=== PATIENT | male | born 1965 | race Caucasian/White ===

== ENCOUNTER → 2016-12-01 | Emergency (ER) | payer BC, OTHER ==
[~2016-12-01] VITALS: Wt 109.0 kg
[~2016-12-01] MED LIST: CYCL-319 PO; ENAL20TA77; HYDR-906 PO; HYDROCODONE/APAP (10/325) TAB PO ONE; KETOROLAC 60 MG INJ IM STA; ONDANSETRON (ODT) 4 MG TAB ODT STA
[2016-12-01 18:10] LABS: URINE BLOOD (Dip) POC Negative (NEGATIVE)
--- NOTE | 2016-12-01 18:48 | RADRPT ---
PROCEDURE: XR L-Spine. CLINICAL INDICATION: Low back pain. TECHNIQUE: AP, lateral, and cone down views of the lumbar spine were obtained. COMPARISON: None FINDINGS: The lumbar lordosis is maintained. The vertebral body heights are normal. Multilevel endplate osteo phytosis is seen. Moderate disk height loss at L5-S1 is seen. Mild disk height loss in the remaind er of the lumbar spine is seen. No acute fracture or subluxation is seen. No paravertebral soft tis cem abnormality is seen. IMPRESSION: Multilevel degenerative spondylosis of the lumbar spine as noted above. RPTAT: HPNM Physician Leah Date Time Electronically viewed and signed by Physician Leah on 12/01/2016 18:48 /
--- NOTE | 2016-12-01 18:58 | ERD ---
ER Documentation Chief Complaint Date/Time DATE: 12/01/16 TIME: 18:56 Chief Complaint LOW BACK PAIN FOR 2 DAYS. NON TRAUMATIC. NO NEURO DEFICIT HPI This 51-year-old male presents with lower back pain on the right for last 2 days. It started after possibly awkward movement. He denies any fall, fevers, urinary complaints, bowel or bladder incontinence. He denies previous history of back problems. ROS All systems reviewed and are negative except as per history of present illness. Medications Home Meds Active Scripts Cyclobenzaprine Hcl* (Cyclobenzaprine Hcl*) 10 Mg Tablet, 10 MG PO TID, #15 TAB Prov:JOSSIE MCKINLEY MD 12/01/16 Hydrocodone/Acetaminophen ([place] 5-325 Tablet) 1 Each Tablet, 1 TAB PO Q6H Y for PAIN, #16 TAB Prov:JOSSIE MCKINLEY MD 12/01/16 Reported Medications Enalapril (Enalapril) 20 Mg Tablet 11/14/09 Allergies Allergies: Coded Allergies: No Known Drug Allergy (Verified Allergy, Unknown, 12/01/16) PMhx/Soc History of Surgery: Yes (HERNIA REPAIR) Hx Neurological Disorder: No Hx Respiratory Disorders: No Hx Cardiac Disorders: Yes (HTN) Hx Miscellaneous Medical Probl: Yes (depression) Hx Alcohol Use: No Hx Substance Use: No Hx Tobacco Use: No Smoking Status: Never smoker Physical Exam Vitals Vital Signs Date Time Temp Pulse Resp B/P Pulse Ox O2 Delivery O2 Flow Rate FiO2 12/01/16 16:26 97.5 89 21 150/81 97 Physical Exam Const: [] Alert, [id number]. Head: Atraumatic Eyes: Normal Conjunctiva ENT: Normal External Ears, Nose and Mouth. Neck: Full range of motion..~ No meningismus. Resp: Clear to auscultation bilaterally Cardio: Regular rate and rhythm, no murmurs Abd: Soft, non tender, non distended. Normal bowel sounds Skin: No petechiae or rashes Back: No midline or flank tenderness. There is some tenderness primarily on the right L4-L5 paraspinous muscles. No midline tenderness or deformities. Positive straight leg raise in the right. Patient is amatory without deficits or weakness. Ext: No cyanosis, or edema Neur: Awake and alert Psych: Normal Mood and Affect Results 24 hrs Laboratory Tests Test 12/01/16 18:13 Bedside Urine Blood Negative Bedside Urine Glucose (UA) Negative Bedside Urine Ketones (LAB) Trace Bedside Urine Leukocyte Esterase (L Negative Bedside Urine Nitrite (LAB) Negative Bedside Urine Protein (LAB) Trace Bedside Urine pH (LAB) 6.0 Current Medications Medications (Trade) Dose Ordered Sig/Mati Route PRN Reason Start Time Stop Time Status Last Admin Dose Admin Ketorolac Tromethamine (Toradol) 60 mg ONCE STAT IM 12/01/16 17:53 12/01/16 17:54 DC 12/01/16 18:11 Acetaminophen/ Hydrocodone Bitart ([place] (10)) 1 tab ONCE ONCE PO 12/01/16 18:00 12/01/16 18:01 DC 12/01/16 18:10 Ondansetron HCl (Zofran Odt) 8 mg ONCE STAT ODT 12/01/16 17:53 12/01/16 17:54 DC 12/01/16 18:10 Procedures/MDM Urine is negative for blood, leukocytes nitrites. Negative for glucose. X-ray LS-Spine 3V Interpreted by me: Bones: [No fracture] Joints: [No dislocation] Foreign body: [None]. Impression-degenerative changes lumbar spine. Patient presents with acute low back pain after awkward movement, likely lumbar strain without evidence of cauda equina syndrome, genitourinary etiology, symptoms of epidural abscess, neurologic deficit, fracture, dislocation. We will treated with a short course of [place] and Flexeril and instructions for back exercises. Patient was given [place] and Toradol here in the ED. Departure Diagnosis: Primary Impression: Injury of back Encounter type: initial encounter Qualified Code: S39.92XA - Injury of back , initial encounter Condition: Stable Patient Instructions: Back Exercises, Lumbar, Back Sprain/Strain Additional Instructions: X-ray shows degenerative degenerative changes in urine is normal. Recommend stretching and exercises at home and follow-up with primary doctor for further evaluation treatment. Recheck otherwise for new or worsening symptoms-fever, weakness. Continue ibuprofen 600 mg every 6 hours at home. JOSSIE MCKINLEY MD Dec 01, 2016 18:58
[2016-12-01 19:11] VITALS: BP 129/87; PULSE 77; RESP 18; TEMP 98.7
== END | disposition home or self-care (01) ==
LOC: FTE 16:24
DX: S39.92XA Unspecified injury of lower back, initial encounter (principal); I10 Essential (primary) hypertension; X50.1XXA Overexertion from prolonged static or awkward postures, initial encounter; Y92.9 Unspecified place or not applicable
CPT/HCPCS: 72100; 81003; 96372; 99284; J1885; Z7610

== ENCOUNTER 2017-01-22 14:01 | Emergency (ER) | payer SELFPAY ==
[~2017-01-22] VITALS: Ht 172.7 cm; Wt 106.5 kg
[~2017-01-22 14:01] MED LIST changes: -ENAL20TA77; +ENAL20TA77 PO; -HYDROCODONE/APAP (10/325) TAB PO ONE; -KETOROLAC 60 MG INJ IM STA; -ONDANSETRON (ODT) 4 MG TAB ODT STA
[2017-01-22 14:26] VITALS: Ht 172.7 cm; Wt 106.5 kg
== END 2017-01-22 22:07 | disposition left against medical advice (07) ==
LOC: E/R 14:01
DX: Z53.21 Procedure and treatment not carried out due to patient leaving prior to being seen by health care provider (principal)

== ENCOUNTER 2017-01-26 16:34 | Observation (INO) | payer BC ==
[~2017-01-26] VITALS: Ht 180.3 cm; Wt 104.7 kg
[2017-01-26] MEDS ORDERED: NITROGLYCERIN 2% 1 GM OINT PKT TD STA (19:48)
[2017-01-26] MEDS ORDERED: ONDANSETRON 4 MG INJ IV STA (19:48)
[2017-01-26] MEDS ORDERED: ASPIRIN 325 MG TAB PO STA (19:48)
[2017-01-26] MEDS ORDERED: morphine 2 MG INJ IV STA (19:48)
--- NOTE | 2017-01-26 19:51 | ERA ---
ER Documentation Chief Complaint Date/Time DATE: 01/26/17 TIME: 19:49 Chief Complaint Complains of chest pain x 1 gour ago HPI Very pleasant 51-year-old male history of hypertension and hyperlipidemia who presents with chest pain. He states that it started 1 hour prior to arrival. He describes it as pressure-like and tingling to the left side of his chest that is now constant but improved approximately 2 out of 10. He denies any back pain, no pleuritic pain, no fevers chills or cough. He denies any recent social stressors. He has not had stress testing in the past 2-5 years. Patient is a non-smoker. ROS All systems reviewed and are negative except as per history of present illness. Medications Home Meds Reported Medications Bupropion Hcl* (Wellbutrin XL*) 300 Mg Tab.sr.24h, 300 MG PO DAILY, TAB.SA 01/26/17 Hydrochlorothiazide* (Hydrochlorothiazide*) 25 Mg Tab, 25 MG PO DAILY, #30 TAB 01/26/17 Metoprolol Tartrate* (Lopressor*) 50 Mg Tab, 50 MG PO BID, #60 TAB 01/26/17 Enalapril (Enalapril) 20 Mg Tablet, 20 MG PO DAILY 11/14/09 Discontinued Scripts Cyclobenzaprine Hcl* (Cyclobenzaprine Hcl*) 10 Mg Tablet, 10 MG PO TID, #15 TAB Prov:JOSSIE MCKINLEY MD 12/01/16 Hydrocodone/Acetaminophen ([place] 5-325 Tablet) 1 Each Tablet, 1 TAB PO Q6H Y for PAIN, #16 TAB Prov:JOSSIE MCKINLEY MD 12/01/16 Allergies Allergies: Coded Allergies: No Known Drug Allergy (Verified Allergy, Unknown, 01/26/17) PMhx/Soc History of Surgery: Yes (HERNIA REPAIR) Hx Neurological Disorder: No Hx Respiratory Disorders: No Hx Cardiac Disorders: Yes (HTN, cholesterol ) Hx Miscellaneous Medical Probl: Yes (depression) Hx Alcohol Use: No Hx Substance Use: No Hx Tobacco Use: No Smoking Status: Never smoker FmHx Family History: No coronary disease, No diabetes Physical Exam Vitals Vital Signs Date Time Temp Pulse Resp B/P Pulse Ox O2 Delivery O2 Flow Rate FiO2 01/26/17 21:39 71 18 124/95 95 Room Air 01/26/17 19:47 82 17 186/100 100 Room Air 01/26/17 16:51 97.6 70 20 171/99 97 Physical Exam General: Well developed, well nourished, no acute distress Head: Normocephalic, atraumatic. Eyes: Pupils equally reactive, EOM intact ENT: Moist mucous membranes Neck: Supple, no lymphadenopathy Respiratory: Lungs clear bilaterally, no distress Cardiovascular: RRR, no murmurs, rubs, or gallops Abdominal: Soft, non-tender, non-distended, no peritoneal signs : Deferred MSK: No edema, no unilateral swelling, 5/5 strength, no pulse deficits Neurologic: Alert and oriented, moving all extremities, normal speech, no focal weakness, no cerebellar signs Skin: No rash Psych: Normal mood Result Diagram: 01/26/17 1950 01/26/17 1950 Results 24 hrs Laboratory Tests Test 01/26/17 19:50 White Blood Count 8.610^3/ul Red Blood Count 5.1510^6/ul Hemoglobin 16.1g/dl Hematocrit 48.4% Mean Corpuscular Volume 94.0fl Mean Corpuscular Hemoglobin 31.3pg Mean Corpuscular Hemoglobin Concent 33.3g/dl Red Cell Distribution Width 12.7% Platelet Count 22584^3/UL Mean Platelet Volume 10.3fl Neutrophils % 66.0% Lymphocytes % 21.7% Monocytes % 9.4% Eosinophils % 2.1% Basophils % 0.5% Nucleated Red Blood Cells % 0.0/100WBC Neutrophils # 5.710^3/ul Lymphocytes # 1.910^3/ul Monocytes # 0.810^3/ul Eosinophils # 0.210^3/ul Basophils # 0.010^3/ul Nucleated Red Blood Cells # 0.010^3/ul Prothrombin Time 12.8Sec Prothrombin Time Ratio 1.0 INR International Normalized Ratio 0.96 Activated Partial Thromboplast Time 28.4Sec Sodium Level 141mmol/L Potassium Level 3.8mmol/L Chloride Level 98mmol/L Carbon Dioxide Level 30mmol/L Anion Gap 17 Blood Urea Nitrogen 18mg/dl Creatinine 1.13mg/dl Glucose Level 96mg/dl Calcium Level 9.4mg/dl Troponin I < 0.012ng/ml Current Medications Medications (Trade) Dose Ordered Sig/Mati Route PRN Reason Start Time Stop Time Status Last Admin Dose Admin Aspirin (Aspirin) 325 mg ONCE STAT PO 01/26/17 19:48 01/26/17 19:49 DC 01/26/17 19:56 Nitroglycerin (Nitroglycerin 2% Oint) 1 inch ONCE STAT TD 01/26/17 19:48 01/26/17 19:49 DC 01/26/17 19:56 Morphine Sulfate (morphine) 2 mg ONCE STAT IV 01/26/17 19:48 01/26/17 19:49 DC 01/26/17 19:56 Ondansetron HCl (Zofran Inj) 4 mg ONCE STAT IV 01/26/17 19:48 01/26/17 19:49 DC 01/26/17 19:55 Lorazepam (Ativan) 1 mg ONCE ONCE IV 01/26/17 20:00 01/26/17 20:01 DC 01/26/17 19:56 Ondansetron HCl (Zofran Inj) 4 mg ER BRIDGE PRN IV NAUSEA AND/OR VOMITING 01/26/17 22:00 01/27/17 21:59 Acetaminophen (Tylenol Tab) 650 mg ER BRIDGE PRN PO MILD PAIN/FEVER 01/26/17 22:00 01/27/17 21:59 Procedures/MDM EKG, MONITORS, & DIAGNOSTIC IMAGING: EKG: I reviewed and interpreted a 12-lead EKG. Rhythm: Normal sinus rhythm Ectopy: None Intervals: No abnormalities ST segments: No elevations or depressions T waves: No contiguous inversions Repeat EKG: EKG: I reviewed and interpreted a 12-lead EKG. Rhythm: Normal sinus rhythm Ectopy: None Intervals: No abnormalities ST segments: No elevations or depressions T waves: No contiguous inversions Chest x-ray: I reviewed and interpreted a 1 view of the chest Mediastinum: No enlargement Cardiac silhouette: No cardiomegaly Airspace: Clear lung bragg bilaterally without evidence of pneumothorax Bones: No evidence of fracture LAB INTERPRETATION: Negative troponin MEDICAL DECISION MAKING: The patient's history, physical exam and clinical presentation is concerning for possible cardiogenic etiology and acute coronary syndrome. Based on the patient's clinical exam and history and risk factors, I have a much lower clinical concern for pulmonary embolism, acute aortic dissection, pneumothorax, pneumonia, cardiac tamponade HEART Score: 4 MACE Rate: 16.6% Shared Decision Making: We had a conversation regarding risk stratification, MACE rate, and the risks, benefits, alternatives of disposition planning options. Disposition planning: I strongly recommend inpatient hospitalization for serial enzymes and risk stratification. Patient is agreeable. ER COURSE: Aspirin, nitro, morphine, Ativan provided. The patient is having a stress reaction when told about potential of cardiac etiology. The patient's blood pressure is elevated but he has no sudden onset pain, no mid back pain, no signs of dissection. This is more likely secondary to stress and anxiety. Monitor closely. I kept the patient and/or family informed of laboratory and diagnostic imaging results throughout the emergency room course. DISPOSITION PLAN: Telemetry admission for management of potential ACS CONSULTATION: Accepting care team and consultations: I discussed the current laboratory data, diagnostic imaging and emergency care provided. Admitting team: Dr. Marsh Admitting team indication: Insurance directed Departure Diagnosis: Primary Impression: Chest pain Qualified Code: R07.9 - Chest pain, unspecified type Additional Impression: Hypertensive urgency Condition: Stable THOMAS RODRIGUEZ MD January 26, 2017 19:51
[2017-01-26 19:59] LABS: ADD SCAN DIFF NO
[2017-01-26] MEDS ORDERED: LORAZEPAM 2 MG INJ IV ONE (20:00)
[2017-01-26 20:14] LABS: BASOPHILS % 0.5 % (0.0-2.0); EOSINOPHILS # 0.2 10^3/ul (0.0-0.5); EOSINOPHILS % 2.1 % (0.0-7.0); HEMATOCRIT 48.4 % (42.0-52.0); HEMOGLOBIN 16.1 g/dl (14.0-18.0); LYMPHOCYTES # 1.9 10^3/ul (0.8-2.9); LYMPHOCYTES % 21.7 % (15.0-51.0); MEAN CORPUSCULAR HEMOGLOBIN 31.3 pg (29.0-33.0); MEAN CORPUSCULAR HGB CONC 33.3 g/dl (32.0-37.0); MEAN PLATELET VOLUME 10.3 fl (7.4-10.4); MONOCYTE # 0.8 10^3/ul (0.3-0.9); MONOCYTES % 9.4 % (0.0-11.0); NEUTROPHIL # 5.7 10^3/ul (1.6-7.5); PLATELET COUNT 230 10^3/UL (140-415); RED BLOOD COUNT 5.15 10^6/ul (4.70-6.10); RED CELL DISTRIBUTION WIDTH 12.7 % (11.5-14.5); WHITE BLOOD COUNT 8.6 10^3/ul (4.8-10.8)
[2017-01-26 20:22] LABS: INR 0.96; PROTIME 12.8 Sec (12.2-14.2)
[2017-01-26 20:23] LABS: PARTIAL THROMBOPLASTIN TIME 28.4 Sec (25.0-35.0)
[2017-01-26 20:25] LABS: CHLORIDE 98 mmol/L (97-110); POTASSIUM 3.8 mmol/L (3.5-5.1); SODIUM 141 mmol/L (135-144)
[2017-01-26 20:27] LABS: CREATININE 1.13 mg/dl (0.61-1.24)
[2017-01-26 20:28] LABS: ANION GAP 17 (8-16); BLOOD UREA NITROGEN 18 mg/dl (7-20); CALCIUM 9.4 mg/dl (8.4-10.2); CARBON DIOXIDE 30 mmol/L (21-31); GLUCOSE 96 mg/dl (70-220)
--- NOTE | 2017-01-26 20:38 | RADRPT ---
PROCEDURE: XR Chest. CLINICAL INDICATION: Chest pain. TECHNIQUE: PA and Lateral views of the chest were obtained. COMPARISON: None. FINDINGS: The soft tissues are normal. The film is under penetrated limiting bone detail in the area of the s pine. The right diaphragm is elevated. The heart, cardiomediastinal silhouette and hilar structure s are normal. The pulmonary vasculature is normal. There is a left-sided aorta. The lungs are clear. The costophrenic angles are normal. IMPRESSION: 1. Elevation of the right diaphragm. 2. No evidence of active cardiopulmonary disease. 3. Allowing for differences in inspiratory effort, stable chest compared to August 18, 2007. RPTAT:AAJJ Physician Bennett Date Time Electronically viewed and signed by Drew Lezama Physician on 01/26/2017 20:38 JAKOB/
[2017-01-26 20:40] LABS: TROPONIN-I < 0.012 ng/ml (0.00-0.12)
[2017-01-26] MEDS ORDERED: BUPR300T48 PO (21:12)
[2017-01-26] MEDS ORDERED: HYD25 PO (21:12)
[2017-01-26] MEDS ORDERED: METO-429 PO (21:12)
[2017-01-26] MEDS ORDERED: ACETAMINOPHEN 325 MG TAB PO PRN (22:00)
[2017-01-26] MEDS ORDERED: ONDANSETRON 4 MG INJ IV PRN (22:00)
--- NOTE | 2017-01-27 00:13 | QN ---
Documentation Comment H&P dict a./p 1. chest pain, plan echo and stress, add lipitor and asa HUMBERTO WOMACK MD January 27, 2017 00:13
[2017-01-27] MEDS ORDERED: HYDROCODONE/APAP (5/325) TAB PO PRN (00:30)
[2017-01-27] MEDS ORDERED: ACETAMINOPHEN 325 MG TAB PO PRN (00:30)
[2017-01-27] MEDS ORDERED: ONDANSETRON 4 MG INJ IV PRN (00:30)
[2017-01-27 00:36] LABS: CHOL/HDL RATIO 6.2 RATIO
--- NOTE | 2017-01-27 01:25 | HP ---
DATE OF ADMISSION: 01/26/2017 CHIEF COMPLAINT: Chest pain. HISTORY OF PRESENT ILLNESS: The patient presents to the emergency room at [facility] with chest pain, which began approximately 3:30 this afternoon. He states that he was at a restaurant wh en he began to experience pain in the center of the chest, which radiated up to the left shoulder. He describes this as pressure-like pain, but there is no associated nausea, vomiting, diaphoresis, o r shortness of breath. This pain lasted for approximately an hour or an hour and a half. He came i mmediately to the emergency room, but the pain spontaneously resolved. He denies any known cardiac disease, prior chest pain instances. Denies tobacco, known hyperlipidemia, though he acknowledges h ypertension. PAST MEDICAL HISTORY: Significant for hypertension. MEDICATIONS: As an outpatient include: 1. Enalapril 20 mg daily. 2. Metoprolol 50 mg b.i.d. 3. Bupropion 300 mg daily. 4. Hydrochlorothiazide 25 mg daily. ALLERGIES: NO KNOWN DRUG ALLERGIES. SOCIAL HISTORY: The patient lives at home in [place] with his sister and [id number], is inde pendent of activities of daily living. Does not drive. Denies tobacco, alcohol, or illicit drug us e. FAMILY HISTORY: Noncontributory. REVIEW OF SYSTEMS: Five systems reviewed and found not to be revealing. PHYSICAL EXAMINATION: VITAL SIGNS: Blood pressure is 124/95, pulse rate 71, respirations 18, temperature is 97.6. GENERAL: Pleasant, middle-aged man in no acute distress. Alert and oriented x3. HEENT: Normocephalic, atraumatic without evident scleral icterus, perioral cyanosis. Mucous membra gretchen are moist. NECK: Soft and supple without masses. No evidence of jugular venous distention or carotid bruits. CHEST: Clear to auscultation and percussion bilaterally. HEART: Regular rate and rhythm. S1, S2. No added sounds. ABDOMEN: Soft, nontender, nondistended without palpable hepatosplenomegaly. EXTREMITIES: Without clubbing, cyanosis, or edema. SKIN: Without rashes. NEUROLOGIC: Grossly intact. LABORATORY STUDIES: Reveal a hemoglobin of 16.1 g/dL, white count of 8600, platelets of 230,000. I NR is 1.0. Sodium 141, potassium 3.8, chloride 98, bicarbonate 30, BUN 18, creatinine 1.13, glucose 96. Initial troponin is negative. EKG is sinus rhythm without ischemic ST segment or T-wave vásquez es. Chest x-ray revealed elevation of the right hemidiaphragm, but otherwise is without infiltrates or effusions. ASSESSMENT AND PLAN: Cardiac: The patient with chest pain, unclear etiology. 1. We will plan to evaluate for ischemic cardiac disease, run serial troponins, obtain echocardiogr am, and plan for stress testing. 2. Continue risk factor modification. 3. Add aspirin and Lipitor to current hypertension regimen. Dictated By: HUMBERTO WOMACK MD RER/NTS Conf#: [id number] DID#: [id number]
[2017-01-27 04:00] VITALS: BP 148/95; PULSE 60; PULSE 64; RESP 16
[2017-01-27 04:07] VITALS: Ht 180.3 cm; Wt 104.7 kg
[2017-01-27 06:20] LABS: CK-MB 1.74 ng/ml (0.0-2.4)
[2017-01-27 06:32] LABS: TROPONIN-I < 0.012 ng/ml (0.00-0.12)
[2017-01-27 06:43] LABS: CREATINE KINASE 88 IU/L (23-200)
[2017-01-27 07:46] VITALS: BP 136/93; PULSE 68; RESP 17
[2017-01-27 08:19] VITALS: PULSE 59
[2017-01-27] MEDS ORDERED: ATORVASTATIN 40 MG TAB PO SCH (09:00)
[2017-01-27] MEDS ORDERED: ENALAPRIL 20 MG TAB PO SCH (09:00)
[2017-01-27] MEDS ORDERED: ASPIRIN (EC) 81 MG TAB PO SCH (09:00)
[2017-01-27] MEDS ORDERED: HYDROCHLOROTHIAZIDE 25 MG TAB PO SCH (09:00)
[2017-01-27] MEDS ORDERED: METOPROLOL 50 MG TAB PO SCH (09:00)
[2017-01-27] MEDS ORDERED: BUPROPION (XL) 150 MG TAB PO SCH (09:00)
[2017-01-27 10:45] LABS: CREATINE KINASE 105 IU/L (23-200)
[2017-01-27 11:23] LABS: TROPONIN-I < 0.012 ng/ml (0.00-0.12)
[2017-01-27 12:00] VITALS: BP 134/91; PULSE 66; RESP 18
[2017-01-27 12:02] VITALS: PULSE 63
--- NOTE | 2017-01-27 12:36 | PDOCDIS ---
Discharge Instructions CONDITION Patient Condition: Good HOME CARE INSTRUCTIONS: Special Diet: low fat,low salt diet ACTIVITY: Activity Restrictions: Slowly Increase Activity Rest between Activity Avoid heavy lifting Avoid Heavy Housework FOLLOW UP/APPOINTMENTS Appointments follow up with his own PMD in 1-2 week after discharge OLEKSANDR MALDONADO MD January 27, 2017 12:36
--- NOTE | 2017-01-27 12:38 | PN ---
Date/Time of Note Date/Time of Note DATE: 01/27/17 TIME: 12:36 Assessment/Plan VTE Prophylaxis VTE Prophylaxis Intervention: SCD's Lines/Catheters IV Catheter Type (from Nrsg): Saline Lock Urinary Cath still in place: No Assessment/Plan Assessment/Plan 1. atypical chest pain 2. chest pain rule out ACS 3. HTN Plan: serial troponins, EKG cardiolgoy to see pt Plan for lexiscan today and if negative then plan for d/c home today Subjective 24 Hr Interval Summary Free Text/Dictation doing ok but still c/o chest pain,vitals stable Exam/Review of Systems Vital Signs Vitals Vital Signs Date Time Temp Pulse Resp B/P Pulse Ox O2 Delivery O2 Flow Rate FiO2 01/27/17 12:02 63 01/27/17 07:46 97.8 17 136/93 96 Room Air 01/27/17 00:12 2.0 Intake and Output 01/26/17 01/26/17 01/27/17 15:00 23:00 07:00 Intake Total 0 ml Balance 0 ml Exam GENERAL: Pleasant, middle-aged man in no acute distress. Alert and oriented x3. HEENT: Normocephalic, atraumatic without evident scleral icterus, perioral cyanosis. Mucous membranes are moist. NECK: Soft and supple without masses. No evidence of jugular venous distention or carotid bruits. CHEST: Clear to auscultation and percussion bilaterally. HEART: Regular rate and rhythm. S1, S2. No added sounds. ABDOMEN: Soft, nontender, nondistended without palpable hepatosplenomegaly. EXTREMITIES: Without clubbing, cyanosis, or edema. SKIN: Without rashes. NEUROLOGIC: Grossly intact. Results Result Diagram: 01/26/17 1950 01/26/171949 Results 24 hrs Laboratory Tests Test 01/26/17 19:50 01/26/17 20:30 01/27/17 04:10 01/27/17 09:44 White Blood Count 8.6 Red Blood Count 5.15 Hemoglobin 16.1 Hematocrit 48.4 Mean Corpuscular Volume 94.0 Mean Corpuscular Hemoglobin 31.3 Mean Corpuscular Hemoglobin Concent 33.3 Red Cell Distribution Width 12.7 Platelet Count 230 Mean Platelet Volume 10.3 Neutrophils % 66.0 Lymphocytes % 21.7 Monocytes % 9.4 Eosinophils % 2.1 Basophils % 0.5 Nucleated Red Blood Cells % 0.0 Neutrophils # 5.7 Lymphocytes # 1.9 Monocytes # 0.8 Eosinophils # 0.2 Basophils # 0.0 Nucleated Red Blood Cells # 0.0 Prothrombin Time 12.8 Prothrombin Time Ratio 1.0 INR International Normalized Ratio 0.96 Activated Partial Thromboplast Time 28.4 Sodium Level 141 Potassium Level 3.8 Chloride Level 98 Carbon Dioxide Level 30 Anion Gap 17 H Blood Urea Nitrogen 18 Creatinine 1.13 Glucose Level 96 Calcium Level 9.4 Troponin I < 0.012 < 0.012 < 0.012 Triglycerides Level 323 H Cholesterol Level 248 H LDL Cholesterol, Calculated 143 HDL Cholesterol 40 Cholesterol/HDL Ratio 6.2 Creatine Kinase 88 105 Creatine Kinase Index 2.0 1.9 Creatinine Kinase MB (Mass) 1.74 2.00 Medications Medications Current Medications Aspirin (Halfprin) 81 mg DAILY PO Last administered on 01/27/17 08:14; Admin Dose 81 MG; Start 01/27/17 at 09:00 Atorvastatin Calcium (Lipitor) 40 mg DAILY PO Last administered on 01/27/17 08: 14; Admin Dose 40 MG; Start 01/27/17 at 09:00 Acetaminophen (Tylenol Tab) 650 mg Q4H PRN PO pain/fever Last administered on 04:25; Admin Dose 650 MG; Start 01/27/17 at 00:30 Ondansetron HCl (Zofran Inj) 4 mg Q4H PRN IV nausae Last administered on 04:26; Admin Dose 4 MG; Start 01/27/17 at 00:30 Hydralazine HCl (Apresoline) 25 mg Q6H PRN PO sbp>160; Start 01/27/17 at 00:30 Acetaminophen/ Hydrocodone Bitart ([place] (5/325)) 1 tab Q4H PRN PO pain Last administered on 01/27/17 11:42; Admin Dose 1 TAB; Start 01/27/17 at 00:30 Bupropion HCl (Wellbutrin Xl) 300 mg DAILY PO Last administered on 01/27/17 08: 15; Admin Dose 300 MG; Start 01/27/17 at 09:00 Enalapril Maleate (Vasotec) 20 mg DAILY PO Last administered on 01/27/17 10:03 ; Admin Dose 20 MG; Start 01/27/17 at 09:00 Hydrochlorothiazide (Hydrochlorothiazide) 25 mg DAILY PO Last administered on 08:15; Admin Dose 25 MG; Start 01/27/17 at 09:00 Metoprolol Tartrate (Lopressor) 50 mg BID PO Last administered on 01/27/17 08: 15; Admin Dose 50 MG; Start 01/27/17 at 09:00 OLEKSANDR MALDONADO MD January 27, 2017 12:38
[2017-01-27] MEDS ORDERED: REGADENOSON 0.4 MG/5 ML SYG ONE (13:45)
--- NOTE | 2017-01-27 14:35 | CONS ---
Date/Time of Note Date/Time of Note DATE: 01/27/17 TIME: 14:29 Assessment/Plan Assessment/Plan Additional Assessment/Plan Chest pain Hypertension Diarrhea -Patient with sudden onset of abdominal and chest discomfort yesterday lasting an hour and a half which has since resolved. He does complain of occasional intermittent exertional shortness of breath. Serial cardiac enzymes remain negative, no significant ischemic abnormalities on ECG. Patient plan for stress test, echocardiogram. Initially, blood pressure was uncontrolled but improved on current regimen. Given enalapril is a twice daily medication, would switch to lisinopril for once a day dosing. Consultation Date/Type/Reason Admit Date/Time January 26, 2017 at 21:55 Type of Consultation: cv Reason for Consultation Chest pain Hx of Present Illness This is a 51-year-old male with past medical history of hypertension, who presents with chest pain. Symptoms were yesterday while at a restaurant. Symptoms were in the mid abdomen and chest. Some burning sensation, some heaviness. There is no associated shortness of breath, nausea. Symptoms lasted for approximately an hour and a half. He does complain of abdominal upset over the past few days. He has been having profuse diarrhea for the past 4 days and was recently seen at an urgent care. He was given a medication to stop his diarrhea with improvement. He does complain of occasional exertional shortness of breath. He does admit to poor activity. Denies any dizziness or lightheadedness. He does feel anxious at the current time. 12 point review of systems was performed with all pertinent positives and negatives mentioned above and all else is negative Past Medical History Medical History: hypertension Family History Significant Family History: no pertinent family hx Social History Smoking Status: Never smoker Other Social History Hairdresser Exam/Review of Systems Vital Signs Vitals Vital Signs Date Time Temp Pulse Resp B/P Pulse Ox O2 Delivery O2 Flow Rate FiO2 01/27/17 12:02 63 01/27/17 12:00 97.8 18 134/91 96 Room Air 01/27/17 00:12 2.0 Intake and Output 01/26/17 01/26/17 01/27/17 15:00 23:00 07:00 Intake Total 0 ml Balance 0 ml Exam No apparent distress Constitutional: alert, oriented Head: normocephalic Neck: supple Respiratory: clear to auscultation, normal air movement Cardiovascular: other (S1-S2 heard), regular rate and rhythm Gastrointestinal: bowel sounds, non-tender, other (No guarding), soft Extremities: other (No cyanosis) Skin: other (Multiple tattoos) Results Result Diagram: 01/26/17 1950 01/26/17 1950 Results 24 hrs Laboratory Tests Test 01/26/17 19:50 01/26/17 20:30 01/27/17 04:10 01/27/17 09:44 White Blood Count 8.6 Red Blood Count 5.15 Hemoglobin 16.1 Hematocrit 48.4 Mean Corpuscular Volume 94.0 Mean Corpuscular Hemoglobin 31.3 Mean Corpuscular Hemoglobin Concent 33.3 Red Cell Distribution Width 12.7 Platelet Count 230 Mean Platelet Volume 10.3 Neutrophils % 66.0 Lymphocytes % 21.7 Monocytes % 9.4 Eosinophils % 2.1 Basophils % 0.5 Nucleated Red Blood Cells % 0.0 Neutrophils # 5.7 Lymphocytes # 1.9 Monocytes # 0.8 Eosinophils # 0.2 Basophils # 0.0 Nucleated Red Blood Cells # 0.0 Prothrombin Time 12.8 Prothrombin Time Ratio 1.0 INR International Normalized Ratio 0.96 Activated Partial Thromboplast Time 28.4 Sodium Level 141 Potassium Level 3.8 Chloride Level 98 Carbon Dioxide Level 30 Anion Gap 17 H Blood Urea Nitrogen 18 Creatinine 1.13 Glucose Level 96 Calcium Level 9.4 Troponin I < 0.012 < 0.012 < 0.012 Triglycerides Level 323 H Cholesterol Level 248 H LDL Cholesterol, Calculated 143 HDL Cholesterol 40 Cholesterol/HDL Ratio 6.2 Creatine Kinase 88 105 Creatine Kinase Index 2.0 1.9 Creatinine Kinase MB (Mass) 1.74 2.00 Medications Medications Current Medications Aspirin (Halfprin) 81 mg DAILY PO Last administered on 01/27/17 08:14; Admin Dose 81 MG; Start 01/27/17 at 09:00 Atorvastatin Calcium (Lipitor) 40 mg DAILY PO Last administered on 01/27/17 08: 14; Admin Dose 40 MG; Start 01/27/17 at 09:00 Acetaminophen (Tylenol Tab) 650 mg Q4H PRN PO pain/fever Last administered on 04:25; Admin Dose 650 MG; Start 01/27/17 at 00:30 Ondansetron HCl (Zofran Inj) 4 mg Q4H PRN IV nausae Last administered on 04:26; Admin Dose 4 MG; Start 01/27/17 at 00:30 Hydralazine HCl (Apresoline) 25 mg Q6H PRN PO sbp>160; Start 01/27/17 at 00:30 Acetaminophen/ Hydrocodone Bitart ([place] (5/325)) 1 tab Q4H PRN PO pain Last administered on 01/27/17 11:42; Admin Dose 1 TAB; Start 01/27/17 at 00:30 Bupropion HCl (Wellbutrin Xl) 300 mg DAILY PO Last administered on 01/27/17 08: 15; Admin Dose 300 MG; Start 01/27/17 at 09:00 Enalapril Maleate (Vasotec) 20 mg DAILY PO Last administered on 01/27/17 10:03 ; Admin Dose 20 MG; Start 01/27/17 at 09:00 Hydrochlorothiazide (Hydrochlorothiazide) 25 mg DAILY PO Last administered on 08:15; Admin Dose 25 MG; Start 01/27/17 at 09:00 Metoprolol Tartrate (Lopressor) 50 mg BID PO Last administered on 01/27/17 08: 15; Admin Dose 50 MG; Start 01/27/17 at 09:00 Procedures Procedures ECG demonstrates sinus rhythm at 66 bpm, normal QRS duration, nonspecific STT wave abnormalities Anton Nguyen DO January 27, 2017 14:35
--- NOTE | 2017-01-27 15:01 | RADRPT ---
PROCEDURE: Lexiscan myocardial perfusion study CLINICAL INDICATION: 51 -year-old patient complaining of chest pain. TECHNIQUE: Lexiscan 0.4 mg intravenously separate acquisition gated myocardial perfusion SPECT usi ng Tc 99m Myoview 32.6 mCi intravenously at stress and Tc-99m Myoview, 10.5 mCi intravenously at res t was performed using the rest/stress sequence. Poststress Myoview SPECT images were obtained in th e supine position. COMPARISON: No prior studies. FINDINGS: Perfusion images reveal mild nonreversible perfusion abnormality in the inferior wall. Lexiscan post stress gated SPECT images demonstrate no wall motion abnormalities. IMPRESSION: 1. No evidence of stress-induced ischemia. 2. No wall motion abnormalities. 3. The left ventricle ejection fraction at stress is 56%. A call report was made to Dr. Nguyen at 03:00 p.m. on January 27, 2017. RPTAT: HH .Mallorie Balderas MD, MD Date Time Electronically viewed and signed by .Mallorie Balderas MD, on 01/27/2017 15:01 .Mohsen/
--- NOTE | 2017-01-27 15:03 | RADRPT ---
Echocardiogram Report Patient Name: MARY HERNANDEZ Gender: Male Date: 1965 Study Date: 27-Jan-2017 Gas Appliance Installer: Radha Willis [facility] Location: 503 Ref. Physician: HUMBERTO WOMACK Quality: Good Procedures: Transthoracic echocardiogram with complete 2D, M-Mode, and doppler examination. Indications: Chest Pain. 2D/M Mode Doppler Measurement Value Normal Ranges Measurement Value Normal Ranges LVIDd 2D 4.2 3.5 - 5.6 cm AV Peak Polo 0.8 m/sec LVIDs 2D 2.1 2.1 - 4.1 cm AV Peak PG 2.7 mmHg LVPWd 2D 0.9 0.6 - 1.1 cm LVOT Peak Polo 0.7 m/sec IVSd 2D 1.0 0.6 - 1.1 cm LVOT Peak PG 2.1 mmHg AoR Diam 2D 3.2 2.0 - 3.7 cm MV E Peak Polo 0.5 m/sec EDV 2D 78.4 cm3 MV A Peak Polo 0.6 m/sec ESV 2D 9.2 cm3 MV E/A 0.9 LA Dimen 2D 3.9 2.3 - 4.0 cm MV Decel Time 189 msec MV Decel Wolfe 3 MV E/A 0.9 TR Peak Polo 1.7 m/sec TR Peak PG 12.2 mmHg RVSP 15.0 mmHg Findings Left Ventricle: Normal left ventricular systolic function. Normal left ventricular cavity size. Normal left ventricular wall thickness. Ejection fraction is visually estimated at 55 %. Tissue Doppler/Mitral Doppler indices are consistent with impaired relaxation (Stage I diastolic dysfunction). Right Ventricle: Normal right ventricular size. Normal right ventricular systolic function. Left Atrium: The left atrium is normal in size. Right Atrium: The right atrium is normal in size. Mitral Valve: Mitral valve leaflets appear mildly thickened. Mild mitral annular calcification. Trace mitral regurgitation. Aortic Valve: Normal appearance of the aortic valve. No significant aortic stenosis or insufficiency. Tricuspid Valve: Normal appearance and function of the tricuspid valve with trace physiologic regurgitation. Pulmonic Valve: Pulmonic valve not well visualized. There is trace pulmonic regurgitation. Pericardium: Normal pericardium with no significant pericardial effusion. Aorta: Normal aortic root. IVC: Normal size and normal respiratory collapse consistent with normal right atrial pressure. Conclusions Normal left ventricular systolic function. Normal left ventricular cavity size. Normal left ventricular wall thickness. Ejection fraction is visually estimated at 55 %. Tissue Doppler/Mitral Doppler indices are consistent with impaired relaxation (Stage I diastolic dysfunction). Normal right ventricular size. Normal right ventricular systolic function. The left atrium is normal in size. The right atrium is normal in size. No significant valvular stenosis or regurgitation seen. Normal pericardium with no significant pericardial effusion. Electronically Signed By: Anton Nguyen 27-Jan-2017 15:02:13 -0700 Patient Name: MARY HERNANDEZ Study Date: 27-Jan-2017 [id number]
[2017-01-27 16:04] VITALS: PULSE 75
[2017-01-27] MEDS ORDERED: LOPERAMIDE 2 MG CAP PO ONE (16:30)
--- NOTE | 2017-01-27 21:58 | DS ---
DATE OF ADMISSION: 01/26/2017 DATE OF DISCHARGE: 01/27/2017 FINAL DISCHARGE DIAGNOSES: 1. Atypical chest pain. Stress test negative. 2. The patient is ruled out for acute coronary syndrome. 3. History of hypertension. 4. Diarrhea, likely secondary to viral gastroenteritis. CONSULTATIONS DONE DURING THIS HOSPITALIZATION: Cardiology consult, Dr. Anton Nguyen. PROCEDURES PERFORMED DURING THIS HOSPITALIZATION: The patient underwent Lexiscan myocardial perfusi on stress test, which revealed no perfusion defects, ejection fraction of 56%. HOSPITAL COURSE: This is a 51-year-old male with a past medical history of hypertension who present ed to the [facility] with the complaint of chest pain. The patient is noted to ennis ve mixed features of chest pain. He gets admitted to the telemetry floor where he had serial tropon ins and EKG negative for any acute coronary syndrome. The patient's chest pain was consistent with atypical chest pain, so he had a cardiology consultation done by Dr. Anton Nguyen and had a Lexisc an myocardial perfusion stress test, which was negative for any perfusion defects. He remained hemo dynamically and symptom free. He was complaining of some diarrhea, so he was given Imodium x1 dose and p.r.n. diarrhea upon discharge. DISPOSITION: To home. DISCHARGE CONDITION: Stable and improved compared to admission. DISCHARGE ACTIVITIES: As tolerated, slowly resume to the normal baseline activity. DISCHARGE DIET: Low fat, low sodium diet. DISCHARGE MEDICATIONS: As per medical reconciliation. He is advised to take Imodium 2 mg p.o. q.4h . p.r.n. diarrhea upon discharge. DISCHARGE FOLLOWUP AND INSTRUCTIONS: 1. The patient is to follow up with his own primary care doctor through his O insurance 1 to 2 we eks after discharge. 2. He has been explained about the discharge plan and followup instructions. He understood and john balized understanding. Dictated By: OLEKSANDR MALDONADO MD, KP/ESTHER Conf#: [id number] DID#: [id number] CC: HUMBERTO WOMACK MD;*End*
[2017-01-28] MEDS ORDERED: LISINOPRIL 20 MG TAB PO SCH (09:00)
--- NOTE | 2017-01-28 14:21 | CARRPT ---
DATE OF PROCEDURE: 01/27/2017 LEXISCAN NUCLEAR STRESS TEST PATIENT HISTORY: The patient presents with chest pain and risk factors. Baseline ECG demonstrates sinus rhythm at 64 beats per minute, nonspecific ST-T wave abnormalities. Baseline heart rate was 67. Baseline blood pressure was 149/97. Lexiscan was administered as per protocol. Peak blood pressure was 167/107. Peak heart rate was 86. Symptoms were flushing and hot, which resolved in recovery. ECG demonstrated no significant ischemic changes. ARRHYTHMIAS: None. ECG interpretation was nonischemic. The nuclear portion will be interpreted by our radiology colleagues. Dictated By: JOSSELINE ARRIAGA/ESTHER Conf#: [id number] DID#: [id number] MTDD
== END 2017-01-27 18:32 | disposition home or self-care (01) ==
LOC: E/R 16:34 → TEL 21:55
PROVIDERS: ADMIT Legal Medicine; ATTEND Legal Medicine
DX: R07.89 Other chest pain (principal); I10 Essential (primary) hypertension; R19.7 Diarrhea, unspecified
CPT/HCPCS: 36415; 71010; 78452; 80048; 80061; 82550; 82553; 84484; 85025; 85610; 85730; 93005; 93017; 93306; 96374; 96375; 99285; A9500; A9505; J2060; J2270; J2405; J2785; Z7500; Z7610; G0378

== ENCOUNTER 2018-05-04 15:07 | Emergency (ER) | END 2018-05-04 19:20 | disposition home or self-care (01) ==

== ENCOUNTER 2019-04-29 08:41 | Emergency (ER) | payer BC ==
[~2019-04-29] VITALS: Ht 165.1 cm; Wt 118.0 kg
[~2019-04-29 08:41] MED LIST changes: +ATOR40TA68 PO; +BUPR300T48 PO; +CHLO10CA6 PO; -CYCL-319 PO; +HYDR-4011 PO; -HYDR-906 PO; +HYDR25TA6 PO; +LISI1TAB8 PO; +MECL12.574 PO; +METH750T93 PO; +METO-319 PO; +METO-429 PO; +NAPR-688 PO; +ONDA4TAB14 PO; +ONDA4TAB8 PO; +SERT100T PO
[2019-04-29 08:49] VITALS: Ht 165.1 cm; Wt 118.0 kg
[2019-04-29] MEDS ORDERED: ASPIRIN 325 MG TAB PO STA (09:03)
[2019-04-29] MEDS ORDERED: ONDANSETRON 4 MG INJ IV STA (09:46)
[2019-04-29] MEDS ORDERED: SOD CHLORIDE 0.9% 1,000 ML IV STA (09:46)
[2019-04-29] MEDS ORDERED: MECLIZINE 12.5 MG TAB PO ONE (10:00)
--- NOTE | 2019-04-29 10:05 | ERD ---
ER Documentation Chief Complaint Chief Complaint dizziness,cp intermittent since last night HPI This is a very pleasant 53-year-old male with a past medical history of hypertension. The patient presents to the emergency department today stating that he awoke this morning with a sudden onset of chest pain. He stated it was not like a chest pressure but rather sharp shooting pain. He had intermittent palpitations associated with this. He indicated that he went up to go to the bathroom and had severe sensation of dizziness and felt as though the room was spinning around him. He does state he has had peripheral vertigo in the past and took an Antivert but this did not improve his symptoms. The chest pain did not radiate to the neck arm back or jaw. He had no associated symptoms of shortness of breath. However he did feel nauseous but did not experience any emesis. He complained of a mild bandlike headache. No fevers or shaking no chills no neck pain. No recent travel or prolonged immobilization. The patient does not smoke tobacco. He has no family history of coronary artery disease in his first-degree relatives. ROS All systems reviewed and are negative except as per history of present illness. Medications Home Meds Reported Medications Ondansetron Hcl* (Zofran*) 4 Mg Tablet, 4 MG PO DAILY PRN for NAUSEA AND OR VOMITING, TAB 04/29/19 Sertraline Hcl* (Zoloft*) 100 Mg Tablet, 200 MG PO DAILY, #60 TAB 04/29/19 Metoprolol Succinate* (Toprol XL*) 50 Mg Tab.er.24h, 50 MG PO DAILY, #30 TAB 04/29/19 Chlordiazepoxide* (Chlordiazepoxide*) 10 Mg Capsule, 10 MG PO BID, CAP 04/29/19 Lisinopril/Hydrochlorothiazide (Lisinopril-Hctz 20-25 mg Tab) 1 Each Tablet, 1 EACH PO DAILY, TAB 04/29/19 Atorvastatin* (Atorvastatin*) 40 Mg Tablet, 40 MG PO QHS, #30 TAB 04/29/19 Discontinued Reported Medications Bupropion Hcl* (Wellbutrin XL*) 300 Mg Tab.sr.24h, 300 MG PO DAILY, TAB.SA 01/26/17 Hydrochlorothiazide* (Hydrochlorothiazide*) 25 Mg Tab, 25 MG PO DAILY, #30 TAB 01/26/17 Metoprolol Tartrate* (Lopressor*) 50 Mg Tab, 50 MG PO BID, #60 TAB 01/26/17 Enalapril (Enalapril) 20 Mg Tablet, 20 MG PO DAILY 11/14/09 Discontinued Scripts Methocarbamol* (Robaxin*) 750 Mg Tablet, 750 MG PO Q6H PRN for MUSCLE SPASMS, #20 TAB Prov:SUMIT BLANCAS DO 05/04/18 Naproxen* (Naproxen*) 500 Mg Tablet, 500 MG PO BID PRN for PAIN, #20 TAB Prov:SUMIT BLANCAS DO 05/04/18 Hydrocodone/Acetaminophen ([place] 5-325 Tablet) 1 Each Tablet, 1 EACH PO Q6 PRN for PAIN, #5 TAB Prov:SUMIT BLANCAS DO 05/04/18 Allergies Allergies: Coded Allergies: No Known Drug Allergy (Verified Allergy, Unknown, 04/29/19) PMhx/Soc Anesthesia Reaction: No Hx Neurological Disorder: No Hx Respiratory Disorders: No Hx Cardiac Disorders: Yes (HTN) Hx Psychiatric Problems: No Hx Miscellaneous Medical Probl: Yes (High cholesterol ) Hx Alcohol Use: No Hx Substance Use: No Hx Tobacco Use: No Physical Exam Vitals Vital Signs Date Temp Pulse Resp B/P (MAP) Pulse Ox O2 O2 Flow FiO2 Time Delivery Rate 04/29/19 Nasal 2 09:00 Cannula 04/29/19 98.1 82 18 128/86 99 08:49 (100) Physical Exam Constitutional:Well-developed. Well-nourished. HEENT:Normocephalic. Atraumatic.Pupils were equal round reactive to light. Moist mucous membranes.No tonsillar exudates. Neck: No nuchal rigidity. No lymphadenopathy. No posterior cervical spine tenderness or step-offs. Respiratory: Not using accessory muscles of respiration.Lungs were clear to auscultation bilaterally. No rhonchi. No rales. No wheezing. Cardiovascular: Regular rate regular rhythm.No murmurs. No rubs were appreciated.S1, S2 normal. Distal pulses are palpable 2+ bilaterally. GI: Abdomen was soft. Nontender. Non Distended. No pulsatile abdominal masses or bruits. No rebound. No guarding. Bowel sounds were present and normal. Muscle skeletal: Full range of motion of both the upper and lower extremities bilaterally.Normal muscle tone.No assymetrical calf tenderness or swelling. Skin: No petechia, no purpura. No lesions on the palms or the soles of the feet. No maculopapular rash. NEURO: Patient was alert, awake, orientated x3.No facial droop. Gait observed and normal with no ataxia.Speech had regular rate and rhythm. No focal neurological deficits. Peripheral fatigable nystagmus Result Diagram: 04/29/19 0937 04/29/1937 Results 24 hrs Laboratory Tests Test 04/29/19 09:37 04/29/19 09:38 White Blood Count 7.0 10^3/ul Red Blood Count 6.13 10^6/ul Hemoglobin 18.1 g/dl Hematocrit 56.1 % Mean Corpuscular Volume 91.5 fl Mean Corpuscular Hemoglobin 29.5 pg Mean Corpuscular Hemoglobin Concent 32.3 g/dl Red Cell Distribution Width 13.6 % Platelet Count 169 10^3/UL Mean Platelet Volume 10.8 fl Immature Granulocytes % 0.100 % Neutrophils % 76.2 % Lymphocytes % 15.0 % Monocytes % 6.9 % Eosinophils % 1.4 % Basophils % 0.4 % Nucleated Red Blood Cells % 0.0 /100WBC Immature Granulocytes # 0.010 10^3/ul Neutrophils # 5.3 10^3/ul Lymphocytes # 1.1 10^3/ul Monocytes # 0.5 10^3/ul Eosinophils # 0.1 10^3/ul Basophils # 0.0 10^3/ul Nucleated Red Blood Cells # 0.0 10^3/ul Prothrombin Time 12.7 Sec Prothrombin Time Ratio 1.0 INR International Normalized Ratio 0.94 Activated Partial Thromboplast Time 27.3 Sec Sodium Level 138 mmol/L Potassium Level 3.6 mmol/L Chloride Level 100 mmol/L Carbon Dioxide Level 31 mmol/L Anion Gap 7 Blood Urea Nitrogen 18 mg/dl Creatinine 1.22 mg/dl Est Glomerular Filtrat Rate mL/min > 60 mL/min Glucose Level 128 mg/dl Calcium Level 9.5 mg/dl Total Bilirubin 1.7 mg/dl Direct Bilirubin 0.00 mg/dl Indirect Bilirubin 1.7 mg/dl Aspartate Amino Transf (AST/SGOT) 43 IU/L Alanine Aminotransferase (ALT/SGPT) 49 IU/L Alkaline Phosphatase 66 IU/L B-Type Natriuretic Peptide 38 PG/ML Total Protein 6.3 g/dl Albumin 4.1 g/dl Globulin 2.20 g/dl Albumin/Globulin Ratio 1.86 Hemoglobin A1c 5.7 % Triglycerides Level 140 mg/dl Cholesterol Level 135 mg/dl LDL Cholesterol, Calculated 69 mg/dl HDL Cholesterol 38 mg/dl Cholesterol/HDL Ratio 3.5 RATIO Prostate Specific Antigen 1.3 ng/ml Current Medications Medications Dose Sig/Mati Start Time Status Last (Trade) Ordered Route PRN Stop Time Admin Dose Reason Admin Aspirin 325 mg ONCE STAT 04/29/19 DC 04/29/19 (Aspirin) PO 09:03 04/29/19 10:10 09:07 Meclizine 25 mg ONCE ONCE 04/29/19 DC 04/29/19 HCl PO 10:00 04/29/19 10:10 (Antivert) 10:01 Ondansetron 4 mg ONCE STAT 04/29/19 DC 04/29/19 HCl (Zofran IV 09:46 04/29/19 10:10 Inj) 09:48 Sodium 1,000 ml @ Q1H STAT 04/29/19 DC 04/29/19 Chloride 1,000 mls/hr IV 09:46 04/29/19 10:10 10:45 Procedures/MDM This patient was seen and evaluated by myself. The patient presented to the emergency department complaining of dizziness. My differential diagnosis included but was not limited to hypovolemia, myocardial infarction, pulmonary embolism, hypoglycemia, hypoxia, anemia, vasovagal episode, hypothyroidism, anxiety, peripheral or central vertigo. The patient was placed on a surveillance system monitor, continuous pulse oximetry and IV access established by nursing staff. The patient was given IV fluids Zofran and Antivert. I obtained a 1 view chest radiograph and there is no infiltrate pneumothorax or pleural effusions and no cardiomegaly. 12 Lead EKG tracing ordered and reviewed by myself showed: Normal sinus rhythm of 75 bpm and no arrhythmia. AK interval normal. QRS duration normal. Incomplete right bundle branch block with left axis deviation No ST segment elevation No ST segment depression. No changes consistent with acute ischemia. The patient was still experiencing vertigo. I felt it was necessary at this time to obtain a CT scan the patient's head. This was reviewed by myself the radiologist and there is no intracerebral hemorrhage mass-effect or midline shift. The patient's symptoms had improved and at this time he stated he felt comfortable being discharged home. The patient was discharged home in fair condition. They were instructed to return to the emergency department at any time if there was any worsening of their condition. The patient stated they would follow up with their PCP in the next 24-48 hours to initiate a suitable medication regimen under the care of their PCP as well as to allow their PCP to monitor any drug reactions. The patient was discharged home with prescriptions after they gave informed consent to the new medication. They were also fully informed by myself on the adverse effects and adverse drug interactions in order to provide adequate safeguards to prevent possible adverse reactions to medications. Departure Diagnosis: Primary Impression: Vertigo Condition: GEETA Tena MD Apr 29, 2019 10:02
[2019-04-29] MEDS ORDERED: DIAZEPAM 5 MG/ML SYG IV ONE (12:00)
[2019-04-29 13:30] VITALS: BP 110/90; PULSE 66; RESP 16
== END 2019-04-29 13:30 | disposition home or self-care (01) ==
LOC: E/R 08:41
DX: I10 Essential (primary) hypertension (principal); R07.9 Chest pain, unspecified
CPT/HCPCS: 70450; 71045; 80053; 80061; 83036; 83880; 84153; 84154; 85025; 85610; 85730; 96361; 96374; 96375; 99285; J2405; J3360; J7030; Z7610; 93005